=== PATIENT | female | born 1960 | race Caucasian/White ===

== ENCOUNTER 2018-12-01 08:55 | Observation (INO) | payer BC ==
[~2018-12-01 08:55] MED LIST: Buffered Lidocaine 1% SYRIN* 1 ML/SYRINGE INTRADERM ONE; Famotidine IV* 10 MG/ML 2 ML (20 mg) IV ONE; Famotidine IV* 10 MG/ML 2 ML (20 mg) ONE; Lactated Ringers 1000 ML Bag* 1,000 ML IV SCH
[2018-12-01] MEDS ORDERED: fentaNYL* 50 MCG/ML 2 ML VIAL (100 MCG VIAL) ONE ×2 (09:45→13:00)
[2018-12-01] MEDS ORDERED: Midazolam* 1 MG/ML 5 ML VIAL (5 MG) ONE (09:46)
[2018-12-01] MEDS ORDERED: Lidocain 1% EPI 1:100,000 * 30 ML MDV ONE (11:51)
[2018-12-01] MEDS ORDERED: EPHEDrine (Pressors)* 50 MG/ML VIAL ONE (13:04)
[2018-12-01] MEDS ORDERED: Succinylcholine* 20 MG/ML 10 ML VIAL ONE (13:04)
[2018-12-01] MEDS ORDERED: Dexamethasone IV* 4 MG/ML 1 ML (4 MG) ONE (13:04)
[2018-12-01] MEDS ORDERED: Ondansetron INJ* 2 MG/ML VIAL ONE (13:04)
[2018-12-01] MEDS ORDERED: Lidocaine 2% PF * 5 ML VIAL ONE (13:04)
[2018-12-01] MEDS ORDERED: DiMENhydriNATE IV* 50 MG/ML VIAL ONE (13:04)
[2018-12-01] MEDS ORDERED: Propofol* 10 MG/ML 20 ML BTL ONE (13:04)
[2018-12-01] MEDS ORDERED: Naloxone* 0.4 MG/ML 1 ML VIAL IV PRN (13:44)
[2018-12-01] MEDS ORDERED: Acetaminophen IV 1GM/100ML * 1,000 MG/100 ML VIAL IVPB ONE (13:44)
[2018-12-01] MEDS ORDERED: DiMENhydriNATE IV* 50 MG/ML VIAL IV PUSH PRN (13:44)
[2018-12-01] MEDS ORDERED: Acetaminophen IV 1GM/100ML * 100 ML ONE (14:57)
[2018-12-01] MEDS ORDERED: HYDROmorphone INJ1* 1 MG/ML SYRINGE ONE (15:28)
[2018-12-01] MEDS: HYDROmorphone INJ1* 1 MG/ML SYRINGE IV PRN ×2 (15:29→15:36)
[2018-12-01] MEDS ORDERED: HYDROcodone/ACETAMIN 5-325 MG* 1 TAB PO PRN ×2 (17:12)
[2018-12-01] MEDS ORDERED: Ondansetron TAB* 4 MG PO PRN (17:23)
[2018-12-01] MEDS ORDERED: Ondansetron INJ* 2 MG/ML VIAL IV PRN (17:23)
[2018-12-01] MEDS ORDERED: Lactated Ringers 1000 ML Bag* 1,000 ML IV SCH (18:00)
[2018-12-01] MEDS ORDERED: Calcium Gluconate INJ* 1 GM in NS 0.9% 50 ML* 50 ML IV PRN ×2 (18:39→19:04)
[2018-12-01] MEDS: Ibuprofen TAB* 800 MG PO PRN (21:02)
--- NOTE | 2018-12-01 22:02 | HP ---
CC: Dr. Lisa Teran; Dr. Ravinder Saba* HISTORY AND PHYSICAL: DATE OF ADMISSION: 12/01/18 PRIMARY CARE PROVIDER: Dr. Lisa Mcneill OTHER PROVIDERS: Dr. Ravinder Saba. ATTENDING PHYSICIAN: Dr. Schofield* (dictated by Evan Murphy NP). CHIEF COMPLAINT: 1. Status post total thyroidectomy. 2. Graves disease. 3. Rheumatoid arthritis. HISTORY OF PRESENT ILLNESS: Ms. Kirkpatrick is a 58-year-old female with a past medical history significant for Graves disease and rheumatoid arthritis who presented to [facility] today for a total thyroidectomy. Please see H and P dictated by Ravinder Saba MD, on 11/02/18, but in short patient has had Graves disease for 4 to 5 years, and after reviewing options for treatment with Dr. Barron, she elected for the surgical option. The patient was taken to the OR today by Dr. Saba and a total thyroidectomy was completed. Hospitalists were asked to admit and co-medical manage. PAST MEDICAL HISTORY: 1. Graves disease. 2. Rheumatoid arthritis. PAST SURGICAL HISTORY: Appendectomy in 1983. HOME MEDICATIONS: 1. Methimazole 10 mg p.o. q.a.m. 2. Iodine tincture 7 drops p.o. t.i.d. 3. Ibuprofen 800 mg q.6 hours p.r.n. 4. Plaquenil 400 mg p.o. q.a.m. 5. Folic acid 1 mg p.o. q.a.m. 6. Calcium 630 mg 2 tabs p.o. t.i.d. with meals. ALLERGIES: No known drug allergies. FAMILY HISTORY: The patient reports she is adopted and does not know her family history. She reports that her children are living and well. SOCIAL HISTORY: The patient denies smoking. The patient denies drug use. The patient reports rare alcohol use. The patient lives with her . The patient is independent in her ADLs at baseline. The patient reports her healthcare proxy/surrogate decision maker will be her , Aditya Kirkpatrick, . REVIEW OF SYSTEMS: Constitutional: No fever, anorexia, weight loss. Eyes: No visual changes. ENT: No sore throat. No difficulty swallowing. Musculoskeletal: The patient reports minor neck pain from surgery. Denies other musculoskeletal pain. Neuro: The patient denies numbness and tingling, muscle spasms, dizziness. Skin: The patient denies rashes or lesions. GI: The patient denies nausea, vomiting, diarrhea. : The patient denies dysuria. Cardiac: No chest pain. No shortness of breath. Respiratory: No shortness of breath. No difficulty breathing. No cough. Psych: No anxiety or depression. PHYSICAL EXAMINATION GENERAL: Ms. Kirkpatrick is a well-developed, well nourished woman sitting in bed, in no acute distress, appears stated age. VITAL SIGNS: Temp 98.0, HR 82, RR 18, 98% on room air, BP 128/70. HEENT: EOMs intact. Oral mucosa moist without lesion. Posterior pharynx is clear. NECK: Supple. Incision to anterior neck is clean, dry, and intact with Steri- Strips intact. OLIVIA drain to anterior left-sided neck is intact with sutures and draining minor bloody drainage. RESPIRATORY: Symmetrical chest expansion. No accessory muscle use. Lungs are clear to auscultation. No rhonchi, wheezes, or rubs. CARDIOVASCULAR: Regular rate and rhythm. S1 and S2 present. No murmurs, rubs , or gallops. ABDOMEN: Soft, nontender to palpation. Bowel sounds normoactive. EXTREMITIES: Skin is warm and smooth bilaterally. No edema. No clubbing or cyanosis. Pedal pulses 2+ bilaterally. MUSCULOSKELETAL: Full range of motion. No pain or deformities. NEURO: Awake, alert and oriented x4. Motor strength is 5/5 in upper and lower extremities. SKIN: Grossly intact without lesions. As mentioned above, dressing to anterior neck is clean, dry, and intact. OLIVIA drain site is benign and sutures intact. DIAGNOSTIC STUDIES/LABORATORY DATA: Calcium drawn at 1710 is 8.9. ASSESSMENT AND PLAN: Ms. Kirkpatrick is a 58-year-old female with a past medical history significant for Graves disease and rheumatoid arthritis who presented to [facility] today for a total thyroidectomy. The patient will be placed OBV. 1. Status post total thyroidectomy: The patient will be placed in short-stay surgical on observation status. The patient will have serum calcium drawn at 10 p.m., 6 a.m. and noon. The patient will be started on levothyroxine 100 mcg p.o. daily. The patient will continue her p.o. calcium. Dr. Saba has written for calcium gluconate 1 g IV if the patient is symptomatic or serum calcium is less than 7.2. For pain control, the patient has been ordered ibuprofen and Mccarley by Dr. Saba. The patient is to maintain head of bed at 30 degrees. The patient is have to OLIVIA drain to bulb suction. The patient is to have OLIVIA drain emptied q. shift p.r.n. 2. Rheumatoid arthritis: We will hold the patient's Plaquenil while she is inpatient. Per Dr. Saba's discharge instructions, she can restart this at discharge. 3. Graves disease: The patient is to stop her methimazole and iodine tincture. 4. FEN: The patient was provided IV fluids in the OR. The patient will have like lactated Ringers ordered by Dr Saba. The patient will be provided a soft diet and instructed the patient to always have water at the bedside to facilitate swallowing. 5. Code status: The patient is a full code. 6. DVT prophylaxis: The patient has been ordered SCDs. TIME SPENT: Approximately 65 minutes was spent on this admission, greater than half the time spent with the patient and family obtaining my history and performing my physical exam and reviewing my plan of care. This case has been reviewed by my attending Dr. Schofield, who agrees with my plan of care. Reviewed by EVAN MURPHY NP 12/06/18 @ 1350 [id number]/CPS #: [id number] ILYA
--- NOTE | 2018-12-01 23:52 | OP ---
OPERATIVE REPORT: DATE OF OPERATION: 12/01/18 DATE OF : 56 SURGEON: Ravinder Saba MD. DIRECTOR CENTER: Deniz Parry MD. PRE-OP DIAGNOSIS: Graves disease with hyperthyroidism. POST-OP DIAGNOSIS: Graves disease with hyperthyroidism. OPERATIVE PROCEDURE: Total thyroidectomy. ANESTHESIA: General. ESTIMATED BLOOD LOSS: Less than 50 cc. SPECIMENS: Total thyroid to Pathology. INDICATION: This is a 58-year-old woman who has a history of Graves disease for the last 4 to 5 year s. She had been relatively quiescent but then her hyperthyroidism began to flare again. She was giv en options of radioactive iodine ablation versus total thyroidectomy and she chose the surgical optio n. DESCRIPTION OF PROCEDURE: On 12/01/18, the patient was brought to the operating room. General anest hesia was induced and a NIM endotracheal tube was placed. The patient was then marked. The intended incision site was then infiltrated with 1% lidocaine with 1:100,000 epinephrine, 6 cc was used. The patient was then prepped with Betadine, draped sterilely, and a time-out was performed. A 15 blade was used to make a horizontal incision through skin. Subcutaneous soft tissue and platysma were divi ded with Bovie cautery. Strap muscles were then identified and divided vertically along their median raphe. The left lobe of the thyroid was addressed first. Strap muscles were reflected off of the s urface of the left lobe of the thyroid. Superior pole vascular pedicle was identified, ligated with hemoclips and divided with the LigaSure device. Attention was then turned inferiorly. The tracheoes ophageal groove was explored and the recurrent laryngeal nerve was identified. This was used as a la ndmark to guide dissection more superiorly. The inferior thyroid vascular pedicle was identified and small branches of the inferior thyroid artery were ligated as close to the gland as possible in an e ffort to preserve blood supply to tissue in the vicinity with an eye to preserving parathyroid viabil ity. One candidate parathyroid was seen definitively and preserved with its blood supply intact on t he left side. The middle thyroid vein was identified, ligated and divided, and the gland was reflect ed off of the trachea and Jean ligament. Dissection was done with a combination of the LigaSure dev ice and bipolar cautery. Once the left lobe was freed, attention was turned to the right side. Agai n the superior pole region was explored first. The vascular pedicle was ligated with hemoclips and d ivided with LigaSure device. Attention was turned inferiorly where the tracheoesophageal groove was explored and the recurrent laryngeal nerve was identified. Both recurrent laryngeal nerves were iden tified not only visually but also identity was confirmed with the stimulator of the NIM device. The inferior vascular pedicle was identified and the terminal branches were ligated as close to the thyro id as possible in order to preserve viability of parathyroid tissue. One parathyroid was seen on thi s side as well and was preserved with its blood supply intact. The recurrent laryngeal nerve was tra flex up to its insertion point into the larynx. The gland was then reflected off of the trachea and a ttachments at Jean ligament were divided. Once the thyroid was removed, the specimen was examined. There was no evidence of obvious parathyroid tissue on this specimen. The wound was then irrigated copiously. Valsalva were performed to explore each thyroid bed. There was no evidence of active ble eding. Small amount of Surgicel was cut and placed into each side of the trachea in the region of Evgeny ry ligament. The wound was then closed in layers. The strap muscles were reapproximated with 3-0 Vi cryl in an interrupted fashion. This allowed for placement of #7 OLIVIA deep to the strap muscles. The OLIVIA was brought out through a separate stab incision to the left side of the main incision. The platy sma was then closed with 3-0 Vicryl using interrupted stitches. Skin was then closed with 4-0 nylon using a running subcuticular stitch. A 4-0 Prolene was used to secure the drain. Steri-strips and M astisol were applied. The patient was then returned to the care of the anesthesiologist, extubated, and delivered to the PACU in stable condition. [id number]/[facility] #: [id number]
[2018-12-02] MEDS ORDERED: Levothyroxine TAB* 100 MCG TAB PO SCH (06:00)
[2018-12-02 08:00] VITALS: BP 111/71
[2018-12-02] MEDS ORDERED: CALCIUM PO SCH (08:00)
[2018-12-02] MEDS: Ibuprofen TAB* 800 MG PO PRN (08:05)
[2018-12-02] MEDS ORDERED: Folic Acid TAB* 1 MG PO SCH (09:00)
--- NOTE | 2018-12-02 11:39 | DS ---
CC: Lisa Teran NP; Dr. Barron; Dr. Ravinder Saba* DISCHARGE SUMMARY: DATE OF ADMISSION: 12/01/18 DATE OF DISCHARGE: 12/02/18 ATTENDING PHYSICIAN: Dr. Tamiko Schofield* (dictated by Evan Murphy NP). PRIMARY CARE PROVIDER: Lisa Teran NP OUTPATIENT APRON TRIMMER: Dr. Barron. OTHER PROVIDERS: Dr. Ravinder Saba. PRIMARY DIAGNOSES: 1. Status post total thyroidectomy. 2. Graves disease. SECONDARY DIAGNOSIS: Rheumatoid arthritis. PROCEDURES WHILE IN THE HOSPITAL: Status post total thyroidectomy. STUDIES WHILE IN THE HOSPITAL: No studies. DISCHARGE HOME MEDICATIONS: New home medications: 1. Levothyroxine 100 mcg p.o. daily. 2. Calcium carbonate 600 mg by mouth 1 tab 3 times a day. Continued home medications: 1. Ibuprofen 800 mg q.6 hours p.r.n. pain. 2. Plaquenil 400 mg p.o. q.a.m. 3. Folic acid 1 mg p.o. q.a.m. Discontinued home medications: 1. Methimazole 10 mg p.o. q.a.m. 2. Iodine 7 drops p.o. t.i.d. HISTORY OF PRESENT ILLNESS/HOSPITAL COURSE: Ms. Kirkpatrick is a 58-year-old female with a past medical history significant for Graves disease and rheumatoid arthritis; who presented to [facility] on 12/01/18 for a total thyroidectomy. Please see history and physical dictated by this publicity writer for complete summary of events leading up to this hospitalization; but in short the patient has a history of Graves disease and had elected for surgical option of total thyroidectomy which was completed on 12/01/18 by Ravinder Saba MD. The patient was admitted OBV to monitor calcium. Calcium has remained stable with only a slight decrease. The patient's status was discussed with Dr. Ravinder Saba this morning, who approved the patient to be discharged this morning. The patient is stable for discharge home. REVIEW OF SYSTEMS: The patient denies tetany, tachycardia, palpitations, chest pain, dizziness, shortness of breath, nausea, vomiting, muscle/joint pain, numbness, tingling. A 14-point review of systems was completed and all others were negative. No sore throat, no difficulty swallowing, no difficulty breathing. PHYSICAL EXAMINATION: General: Ms. Kirkpatrick is a 58-year-old female who is sitting in the recliner. She appears in no acute distress. She appears stated age. Vital Signs: Temp 97.8, HR 75, RR 18, O2 saturation 100% on room air, BP 111/ 71. Neck: Supple. No lymphadenopathy. Steri-Strips to anterior neck incision, clean, dry, and intact. Gauze to left anterior neck from previous OLIVIA drain. Site is clean, dry, and intact. Respiratory: Symmetric chest expansion. No accessory muscle use. Lungs are clear to auscultation. No rhonchi, wheezes, or rales. CV: Regular rate and rhythm. S1, S2 present. No murmurs, rubs, or gallops. Extremities: Skin is warm and smooth bilaterally. No edema. No clubbing or cyanosis. Pedal pulses 2+ bilaterally. Musculoskeletal: Full range of motion. No pain or deformities. Abdomen: Soft and nontender to palpation. Bowel sounds normoactive throughout. Neuro: Awake, alert, oriented x4. Moves all extremities. Motor strength is 5/ 5 in upper and lower extremities. Steady gait. No impairment. Skin: Grossly intact without lesions. See neck assessment for dressing descriptions. DIAGNOSTIC STUDIES/LABORATORY DATA: Calcium obtained 12/01/18 at 1710 is 8.9. Calcium obtained 12/01/18 at 2157 is 8.7. Calcium obtained 12/02/18 at 0614 is 8.4. DISCHARGE PLAN/FOLLOWUP: 1. Status post thyroidectomy: I discussed the patient's discharge with Dr. Ravinder Saba who recommended discharge this morning. The patient was educated on continuing Levothyroxine as ordered by Dr. Barron. The patient was educated on continuing calcium carbonate as recommended by Dr. Saba. The patient has written instructions by Dr. Saba who also specified that the patient can restart her Plaquenil, discontinue the patient's methimazole and Lugol solution. Wound care includes, the patient is okay to shower 24 hours after surgery and okay to get sutures wet. Dr. Saba will remove the Steri- Strips and stitches in the office on her followup. Dr. Saba reports that the patient already has a followup and is aware of date and time. 2. Graves disease: As mentioned above, the patient has been instructed to stop the methimazole and Lugol solution. The patient to follow up with Dr. Saba and Dr. Barron. 3. Rheumatoid arthritis: As mentioned above, the patient can restart her Plaquenil. The patient should follow up with Teresa Kathleen as previously instructed. 4. The patient was educated on signs and symptoms of new or worsening conditions including the signs and symptoms of hypocalcemia. The patient stated understanding. 5. Followup: As mentioned above, the patient already has a followup with Dr. Saba. The patient to follow up with Dr. Barron as previously recommended. The patient to follow up with her primary care and Teresa Kathleen as needed. This is a summarized report of a complex medical history. For further details, please see the entire medical record. TIME SPENT: Approximately 35 minutes were spent on this discharge, greater than half the time was spent [id number] with the patient discussing discharge plans and instructions. Reviewed by EVAN MURPHY NP 12/06/18 @ 1351 [id number]/[facility] #: [id number]
== END 2018-12-02 10:00 | disposition home or self-care (01) ==
LOC: OR 08:55 → SSU 16:59
PROVIDERS: ADMIT Otolaryngology; ATTEND Internal Medicine
DX: E05.20 Thyrotoxicosis with toxic multinodular goiter without thyrotoxic crisis or storm (principal); E05.00 Thyrotoxicosis with diffuse goiter without thyrotoxic crisis or storm; Z90.89 Acquired absence of other organs; E89.0 Postprocedural hypothyroidism; M06.9 Rheumatoid arthritis, unspecified; R00.0 Tachycardia, unspecified; R07.9 Chest pain, unspecified; R11.2 Nausea with vomiting, unspecified; R06.02 Shortness of breath; R20.0 Anesthesia of skin
CPT/HCPCS: 36415; 82310; 88307; 96372; 96374; 96375; A9270-GY; G0378; J0330; J1100; J1170; J1240; J2250; J2405; J2704; J3010